=== PATIENT | male | born 1945 | race Caucasian/White ===

== ENCOUNTER 2017-07-11 20:48 | Emergency (ER) | payer MEDICARE, OTHER ==
[~2017-07-11] VITALS: Ht 185.4 cm; Wt 81.7 kg
[2017-07-11] MEDS ORDERED: ZOVIRAX400 MG PO (21:06)
[2017-07-11] MEDS ORDERED: CALCIUM MAGNES1 EAC2 PO (21:06)
[2017-07-11] MEDS ORDERED: VITAMIN D3400 UNIT PO (21:08)
[2017-07-11] MEDS ORDERED: CLONAZEPAM0.5 MG PO (21:08)
[2017-07-11] MEDS ORDERED: COQ-10100 MG PO (21:09)
[2017-07-11] MEDS ORDERED: CRESTOR40 MG NG (21:09)
[2017-07-11] MEDS ORDERED: FOSAMAX70 MG PO (21:09)
[2017-07-11] MEDS ORDERED: HUPERZINE SERRAT1 GM MISC (21:50)
[2017-07-11] MEDS ORDERED: GABAPENTIN600 MG PO (21:50)
[2017-07-11] MEDS ORDERED: COZAAR50 MG PO (21:51)
[2017-07-11] MEDS ORDERED: LANTUS100 UNITS/ SUB-Q (21:51)
[2017-07-11] MEDS ORDERED: MIRALAX17 GM PO (21:52)
[2017-07-11] MEDS ORDERED: MAGNESIUM250 M1 PO (21:52)
[2017-07-11] MEDS ORDERED: MYFORTIC360 MG PO (21:53)
[2017-07-11] MEDS ORDERED: HUMALOG100 UNIT/2 SUB-Q (21:54)
[2017-07-11] MEDS ORDERED: NORCO 7.5-3251 EACH PO (21:54)
[2017-07-11] MEDS ORDERED: PROGRAF1 MG PO (21:58)
[2017-07-11] MEDS ORDERED: VERAPAMIL ER180 M1 PO (21:58)
[2017-07-11] MEDS ORDERED: PREDNISONE20 MG PO (21:58)
[2017-07-11] MEDS ORDERED: COUMADIN5 MG PO (22:00)
[2017-07-11] MEDS ORDERED: ZOFRAN ODT4 MG PO (22:11)
--- NOTE | 2017-07-12 20:30 | EKG ---
[facility] [address] [facility] [place] [address] Signed Normal sinus rhythm Normal ECG No previous ECGs available Confirmed by JENNI AGUILA MD ([id number] on 07/12/2017 8:30:34 PM Electronically Signed By: JENNI AGUILA MD 07/12/17 2030 PATIENT NAME: FADUMO MASSEY COREY Electrocardiogram DATE OF : 49 PHYSICIAN: JENNI AGUILA MD REPORT #: [id number] REPORT IS CONFIDENTIAL AND NOT TO BE RELEASED WITHOUT AUTHORIZATION
== END 2017-07-11 23:37 | disposition home or self-care (01) ==
LOC: ED 20:48
DX: I10 Essential (primary) hypertension (principal); B34.9 Viral infection, unspecified; F41.9 Anxiety disorder, unspecified; F17.200 Nicotine dependence, unspecified, uncomplicated; Z88.6 Allergy status to analgesic agent; Z88.8 Allergy status to other drugs, medicaments and biological substances; Z79.899 Other long term (current) drug therapy; Z79.4 Long term (current) use of insulin; Z79.52 Long term (current) use of systemic steroids; Z79.01 Long term (current) use of anticoagulants; Z94.0 Kidney transplant status; Z86.73 Personal history of transient ischemic attack (TIA), and cerebral infarction without residual deficits; Z86.14 Personal history of Methicillin resistant Staphylococcus aureus infection
CPT/HCPCS: 71020; 80053; 81001; 84484; 85025; 93005; 93010; 96361; 96374; 99283; J2405; J7030

== ENCOUNTER 2017-08-25 20:56 | Emergency (ER) | payer MEDICARE, OTHER ==
[~2017-08-25] VITALS: Ht 185.4 cm; Wt 81.7 kg
[~2017-08-25 20:56] MED LIST: CALCIUM MAGNES1 EAC2 PO; CLONAZEPAM0.5 MG PO; COQ-10100 MG PO; COUMADIN5 MG PO; COZAAR50 MG PO; CRESTOR40 MG NG; FOSAMAX70 MG PO; GABAPENTIN600 MG PO; HUMALOG100 UNIT/2 SUB-Q; HUPERZINE SERRAT1 GM MISC; LANTUS100 UNITS/ SUB-Q; MAGNESIUM250 M1 PO; MIRALAX17 GM PO; MYFORTIC360 MG PO; NORCO 7.5-3251 EACH PO; PREDNISONE20 MG PO; PROGRAF1 MG PO; VERAPAMIL ER180 M1 PO; VITAMIN D3400 UNIT PO; ZOFRAN ODT4 MG PO; ZOVIRAX400 MG PO
[2017-08-25] MEDS ORDERED: ZOLOFT50 MG PO (21:25)
[2017-08-25] MEDS ORDERED: [UNRECOGNIZED DRUG - OTHER] (21:26)
[2017-08-25] MEDS ORDERED: ZITHROMAX250 MG PO (23:33)
[2017-08-25] MEDS ORDERED: ZOFRAN ODT4 MG PO (23:33)
== END 2017-08-26 01:00 | disposition home or self-care (01) ==
LOC: ED 20:56
DX: J06.9 Acute upper respiratory infection, unspecified (principal); I12.9 Hypertensive chronic kidney disease with stage 1 through stage 4 chronic kidney disease, or unspecified chronic kidney disease; N18.9 Chronic kidney disease, unspecified; E11.22 Type 2 diabetes mellitus with diabetic chronic kidney disease; F41.9 Anxiety disorder, unspecified; E78.5 Hyperlipidemia, unspecified; F17.200 Nicotine dependence, unspecified, uncomplicated; Z88.6 Allergy status to analgesic agent; Z88.8 Allergy status to other drugs, medicaments and biological substances; Z79.899 Other long term (current) drug therapy; Z79.4 Long term (current) use of insulin; Z79.52 Long term (current) use of systemic steroids; Z79.01 Long term (current) use of anticoagulants
CPT/HCPCS: 71020; 80053; 81001; 83605; 85025; 96365; 96375; 99283; J0456; J0696; J2405

== ENCOUNTER 2018-03-07 17:38 | Emergency (ER) | payer MEDICARE, OTHER ==
[~2018-03-07] VITALS: Ht 185.4 cm; Wt 81.7 kg
[~2018-03-07 17:38] MED LIST changes: +ZITHROMAX250 MG PO; +ZOLOFT50 MG PO; +[UNRECOGNIZED DRUG - OTHER]
[2018-03-17] MEDS ORDERED: AUGMENTIN 875-1 EACH PO (11:35)
== END 2018-03-07 18:28 | disposition home or self-care (01) ==
LOC: ED 17:38
DX: S91.131A Puncture wound without foreign body of right great toe without damage to nail, initial encounter (principal); W22.8XXA Striking against or struck by other objects, initial encounter; F41.9 Anxiety disorder, unspecified; I12.9 Hypertensive chronic kidney disease with stage 1 through stage 4 chronic kidney disease, or unspecified chronic kidney disease; E11.22 Type 2 diabetes mellitus with diabetic chronic kidney disease; N18.9 Chronic kidney disease, unspecified; F17.200 Nicotine dependence, unspecified, uncomplicated; Z88.6 Allergy status to analgesic agent; Z88.1 Allergy status to other antibiotic agents; Z79.2 Long term (current) use of antibiotics; Z79.899 Other long term (current) drug therapy; Z79.4 Long term (current) use of insulin; Z79.01 Long term (current) use of anticoagulants; Z79.891 Long term (current) use of opiate analgesic
CPT/HCPCS: 90471; 90715; 99282

== ENCOUNTER → 2018-03-17 | Emergency (ER) | payer MEDICARE, OTHER ==
[~2018-03-17] VITALS: Ht 185.4 cm; Wt 81.7 kg
[~2018-03-17] MED LIST changes: +AUGMENTIN 875-1 EACH PO
== END ==
LOC: ED 10:35
DX: M25.522 Pain in left elbow (principal); M77.8 Other enthesopathies, not elsewhere classified; W22.8XXA Striking against or struck by other objects, initial encounter; F41.9 Anxiety disorder, unspecified; I12.9 Hypertensive chronic kidney disease with stage 1 through stage 4 chronic kidney disease, or unspecified chronic kidney disease; E11.22 Type 2 diabetes mellitus with diabetic chronic kidney disease; N18.9 Chronic kidney disease, unspecified; E78.5 Hyperlipidemia, unspecified; F17.200 Nicotine dependence, unspecified, uncomplicated; Z88.6 Allergy status to analgesic agent; Z88.1 Allergy status to other antibiotic agents; Z79.2 Long term (current) use of antibiotics; Z79.899 Other long term (current) drug therapy
CPT/HCPCS: 73080; 99283

== ENCOUNTER 2018-03-28 17:17 | Emergency (ER) | payer MEDICARE, OTHER ==
[~2018-03-28] VITALS: Ht 185.4 cm; Wt 81.7 kg
== END 2018-03-28 18:00 | disposition home or self-care (01) ==
LOC: ED 17:17
DX: S51.812A Laceration without foreign body of left forearm, initial encounter (principal); D64.9 Anemia, unspecified; I12.9 Hypertensive chronic kidney disease with stage 1 through stage 4 chronic kidney disease, or unspecified chronic kidney disease; E11.22 Type 2 diabetes mellitus with diabetic chronic kidney disease; N18.9 Chronic kidney disease, unspecified; E78.5 Hyperlipidemia, unspecified; F17.200 Nicotine dependence, unspecified, uncomplicated; Z79.2 Long term (current) use of antibiotics; Z79.899 Other long term (current) drug therapy; Z88.6 Allergy status to analgesic agent; W26.8XXA Contact with other sharp object(s), not elsewhere classified, initial encounter
CPT/HCPCS: 99282

== ENCOUNTER 2018-05-05 20:52 | Emergency (ER) | payer MEDICARE, OTHER ==
[~2018-05-05] VITALS: Ht 185.4 cm; Wt 81.7 kg
[~2018-05-05 20:52] MED LIST changes: +HYDROCODON-ACE1 EAC8 PO; -NORCO 7.5-3251 EACH PO
[2018-05-05] MEDS ORDERED: TACROLIMUS1 MG PO (21:15)
[2018-05-05] MEDS ORDERED: LOPERAMIDE2 MG PO (21:16)
[2018-05-05] MEDS ORDERED: TAMSULOSIN HCL0.4 MG PO (21:17)
--- NOTE | 2018-05-07 14:39 | EKG ---
[facility] [address] [facility] [place], [place] [address] Signed Normal sinus rhythm Normal ECG When compared with ECG of 11-JUL-2017 21:31, No significant change was found Confirmed by MAGUE HOWELL DO ([id number]) on 05/07/2018 2:38:25 PM Electronically Signed By: MAGUE HOWELL DO 05/07/18 1439 PATIENT NAME: FADUMO MASSEY Electrocardiogram DATE OF : 49 PHYSICIAN: MAGUE HOWELL DO REPORT #: [id number] REPORT IS CONFIDENTIAL AND NOT TO BE RELEASED WITHOUT AUTHORIZATION
== END 2018-05-06 00:21 | disposition home or self-care (01) ==
LOC: ED 20:52
DX: R53.1 Weakness (principal); E86.0 Dehydration; D89.9 Disorder involving the immune mechanism, unspecified; I10 Essential (primary) hypertension; E11.9 Type 2 diabetes mellitus without complications; F17.200 Nicotine dependence, unspecified, uncomplicated; Z88.1 Allergy status to other antibiotic agents; Z88.6 Allergy status to analgesic agent; Z79.4 Long term (current) use of insulin; Z79.01 Long term (current) use of anticoagulants; Z79.899 Other long term (current) drug therapy
CPT/HCPCS: 71046; 80048; 80053; 81001; 83735; 84484; 85025; 85610; 93005; 93010; 96360; 96361; 99285; J7030

== ENCOUNTER 2018-12-31 10:01 | Emergency (ER) | payer MEDICARE, OTHER ==
[~2018-12-31] VITALS: Ht 185.4 cm; Wt 81.7 kg
[~2018-12-31 10:01] MED LIST changes: +LOPERAMIDE2 MG PO; +TACROLIMUS1 MG PO; +TAMSULOSIN HCL0.4 MG PO
[2018-12-31] MEDS ORDERED: BACTRIM DS TAB1 EACH PO (11:10)
== END 2018-12-31 11:20 | disposition home or self-care (01) ==
LOC: ED 10:01
DX: L02.31 Cutaneous abscess of buttock (principal); F41.9 Anxiety disorder, unspecified; I12.9 Hypertensive chronic kidney disease with stage 1 through stage 4 chronic kidney disease, or unspecified chronic kidney disease; N18.9 Chronic kidney disease, unspecified; E78.5 Hyperlipidemia, unspecified; E11.22 Type 2 diabetes mellitus with diabetic chronic kidney disease; F17.200 Nicotine dependence, unspecified, uncomplicated; Z88.1 Allergy status to other antibiotic agents; Z88.6 Allergy status to analgesic agent; Z79.899 Other long term (current) drug therapy; Z79.4 Long term (current) use of insulin; Z79.52 Long term (current) use of systemic steroids
CPT/HCPCS: 10060; 87070; 87205; 99282-25

== ENCOUNTER 2019-01-02 10:21 | Emergency (ER) | payer MEDICARE, OTHER ==
[~2019-01-02] VITALS: Ht 185.4 cm; Wt 81.7 kg
[~2019-01-02 10:21] MED LIST changes: +BACTRIM DS TAB1 EACH PO
[2019-01-02] MEDS ORDERED: DOXYCYCLINE HY100 MG PO (13:28)
== END 2019-01-02 13:48 | disposition home or self-care (01) ==
LOC: ED 10:21
DX: J40 Bronchitis, not specified as acute or chronic (principal); Z48.817 Encounter for surgical aftercare following surgery on the skin and subcutaneous tissue; F41.9 Anxiety disorder, unspecified; I12.9 Hypertensive chronic kidney disease with stage 1 through stage 4 chronic kidney disease, or unspecified chronic kidney disease; N18.9 Chronic kidney disease, unspecified; E78.5 Hyperlipidemia, unspecified; E11.22 Type 2 diabetes mellitus with diabetic chronic kidney disease; F17.200 Nicotine dependence, unspecified, uncomplicated; Z88.6 Allergy status to analgesic agent; Z88.1 Allergy status to other antibiotic agents; Z79.899 Other long term (current) drug therapy; Z79.4 Long term (current) use of insulin; Z79.891 Long term (current) use of opiate analgesic; Z79.52 Long term (current) use of systemic steroids; Z79.01 Long term (current) use of anticoagulants
CPT/HCPCS: 71046; 80053; 85025; 85610; 94640; 99283-25; 99406

== ENCOUNTER 2019-08-05 08:05 | Emergency (ER) | payer MEDICARE, OTHER ==
[~2019-08-05] VITALS: Ht 185.4 cm; Wt 81.6 kg
[~2019-08-05 08:05] MED LIST changes: +DOXYCYCLINE HY100 MG PO
[2019-08-05] MEDS ORDERED: TRAMADOL HCL50 MG PO (08:55)
== END 2019-08-05 09:05 | disposition home or self-care (01) ==
LOC: ED 08:05
DX: S42.212A Unspecified displaced fracture of surgical neck of left humerus, initial encounter for closed fracture (principal); W18.30XA Fall on same level, unspecified, initial encounter; F41.9 Anxiety disorder, unspecified; I12.9 Hypertensive chronic kidney disease with stage 1 through stage 4 chronic kidney disease, or unspecified chronic kidney disease; N18.9 Chronic kidney disease, unspecified; E78.5 Hyperlipidemia, unspecified; E11.22 Type 2 diabetes mellitus with diabetic chronic kidney disease; F17.200 Nicotine dependence, unspecified, uncomplicated; Z88.6 Allergy status to analgesic agent; Z88.1 Allergy status to other antibiotic agents; Z79.899 Other long term (current) drug therapy; Z79.4 Long term (current) use of insulin; Z79.01 Long term (current) use of anticoagulants
CPT/HCPCS: 73030; 99283-25